=== PATIENT | male | born 1985 | race African-American/Black ===

== ENCOUNTER 2024-09-13 01:57 | Emergency (ER) | payer OTHER ==
[~2024-09-13] VITALS: Ht 180.3 cm; Wt 118.0 kg
[2024-09-13] MEDS ORDERED: ACETAMINOPHEN 500 MG TAB PO ONE (02:10)
[2024-09-13] MEDS ORDERED: DICLOFENAC SODIUM 75 MG/TAB PO ONE (02:10)
[2024-09-13] MEDS ORDERED: traMADol HCL 50 MG/TAB PO ONE (02:25)
[2024-09-13] MEDS ORDERED: TORADOL PO (02:27)
[2024-09-13 02:46] VITALS: BP 122/86
== END 2024-09-13 02:54 | disposition home or self-care (01) | DRG 556 ==
LOC: ED 01:57
DX: M79.604 Pain in right leg (principal)